=== PATIENT | female | born 1950 | race Caucasian/White ===

== ENCOUNTER → 2016-10-06 | Outpatient (CLI) | payer MEDICARE, OTHER ==
[~2016-10-06] VITALS: Ht 154.9 cm; Wt 85.9 kg
[~2016-10-06] MED LIST: DESYREL DIVIDO300 MG PO; EFFEXOR-XR150 MG PO; FISH OIL 1000MG1 CAP PO; FLONASEALLERGY NS; KLONOPIN 0.5MG0.5 MG PO; MULTI VITAMINS1 TAB PO
[2016-10-06 11:29] VITALS: BP 140/92; PULSE 88
[2016-10-06 12:55] VITALS: BP 159/89; PULSE 80
== END ==
LOC: COL.RAD 11:01
DX: D44.0 Neoplasm of uncertain behavior of thyroid gland (principal)

== ENCOUNTER → 2017-12-24 | Outpatient (CLI) | payer MEDICARE, OTHER ==
[~2017-12-24] VITALS: Ht 154.9 cm; Wt 69.0 kg
[~2017-12-24] MED LIST changes: +00186-0372-20 IH; +AMBIEN 5MG TABLE5 MG PO; +DESYREL DIVIDO150 M1 PO; +INCRUSE EL62.5 MCG/A IH; +REGLAN 10MG10 MG/TAB PO; +ZOHYDRO ER10 MG PO; +ZOLOFT 100MG100 MG PO
[2017-12-24 13:41] VITALS: BP 159/83; PULSE 74
[2017-12-24 14:30] VITALS: BP 158/74; PULSE 66
== END ==
LOC: COL.RAD 13:00
DX: M99.73 Connective tissue and disc stenosis of intervertebral foramina of lumbar region (principal); M48.061 Spinal stenosis, lumbar region without neurogenic claudication; M43.16 Spondylolisthesis, lumbar region; M54.16 Radiculopathy, lumbar region; Z98.890 Other specified postprocedural states
CPT/HCPCS: J3301

== ENCOUNTER → 2018-04-13 | Outpatient (CLI) | payer MEDICARE, OTHER | LOC: COL.RAD 07:44 | DX: K57.30 Diverticulosis of large intestine without perforation or abscess without bleeding (principal); K25.9 Gastric ulcer, unspecified as acute or chronic, without hemorrhage or perforation; R47.9 Unspecified speech disturbances | CPT/HCPCS: A9541 ==

== ENCOUNTER → 2018-04-20 | Outpatient (CLI) | payer MEDICARE, OTHER | LOC: MHCPAIN 12:14 | DX: G89.29 Other chronic pain (principal); M47.817 Spondylosis without myelopathy or radiculopathy, lumbosacral region; M54.16 Radiculopathy, lumbar region; M53.3 Sacrococcygeal disorders, not elsewhere classified; M96.1 Postlaminectomy syndrome, not elsewhere classified | CPT/HCPCS: G0463 ==

== ENCOUNTER → 2018-06-07 | Outpatient (CLI) | payer MEDICARE, OTHER | LOC: MHCPAIN 04-29 15:25 | DX: M47.817 Spondylosis without myelopathy or radiculopathy, lumbosacral region (principal); M54.16 Radiculopathy, lumbar region | CPT/HCPCS: J1100; Q9967 ==